=== PATIENT | female | born 2000 | race Hispanic/Latino ===

== ENCOUNTER 2019-04-23 09:30 | Outpatient (CLI) | payer BC ==
--- NOTE | 2019-04-23 10:34 | ULT ---
US Abdominal History: Abdominal pain Comparison: None. Findings: Real-time grayscale and color evaluation of the abdomen was performed. Visualized portion of the aorta, IVC, and pancreas are unremarkable. Hepatic echotexture is normal. G allbladder is normal. No pericholecystic fluid. Common bile duct is normal measuring 2 mm. Right kidney measures 10 x 4.4 x 5.4 cm without mass, hydronephrosis, or abnormal calcifications. The left kidney measures 10 x 4.4 x 5.7 cm without mass, hydronephrosis, or abnormal calcifications. Spleen measures 9.8 cm in length. Sonographic Sun sign is negative. Impression: Normal examination of the abdomen.
--- NOTE | 2019-04-23 16:10 | RAD ---
Upper GI and small bowel exam HISTORY: Abdominal pain. FINDINGS: Air contrast upper GI exam shows normal anatomic appearance of the esophagus and stomach. M oderate amount of gastroesophageal reflux visible. Very small sliding hiatal hernia. No focal mass or ulceration. Mucosal pattern the small bowel is within normal limits. No evidence of obstruction. Terminal ileum w as reached at 45 minutes. Fluoroscopy time 2.2 minutes. IMPRESSION: Very small sliding hiatal hernia. Moderate amount of gastroesophageal reflux. No other significant abnormalities are demonstrated.
== END 2019-04-23 09:31 | disposition home or self-care (01) ==
LOC: ULT 09:30
PROVIDERS: ATTEND Internal Medicine Gastroenterology
DX: R10.9 Unspecified abdominal pain (principal); K44.9 Diaphragmatic hernia without obstruction or gangrene; K21.9 Gastro-esophageal reflux disease without esophagitis
CPT/HCPCS: 74249; 93975